=== PATIENT | male | born 1990 | race American Indian/Alaskan Native ===

== ENCOUNTER 2024-11-03 13:19 | Emergency (ER) | payer BC ==
[~2024-11-03] VITALS: Ht 182.9 cm; Wt 88.5 kg
[2024-11-03 13:38] VITALS: BP 137/79; PULSE 76; RESP 16; TEMP 97.9; O2SAT 98
[2024-11-03 14:40] VITALS: BP 122/87; PULSE 64; RESP 16; O2SAT 97
== END 2024-11-03 14:45 | disposition home or self-care (01) ==
LOC: ER 13:19
DX: S62.336A Displaced fracture of neck of fifth metacarpal bone, right hand, initial encounter for closed fracture (principal); Z94.0 Kidney transplant status; W22.01XA Walked into wall, initial encounter; Y93.89 Activity, other specified; Y92.89 Other specified places as the place of occurrence of the external cause; Y99.8 Other external cause status
CPT/HCPCS: 29125; 99283; 73130-RT